=== PATIENT | male | born 1955 | race Caucasian/White ===

== ENCOUNTER 2023-04-14 08:00 | Emergency (ER) | payer OTHER ==
[~2023-04-14] VITALS: Ht 172.7 cm; Wt 103.4 kg
[~2023-04-14 08:00] MED LIST: ACYC800 PO; ALLO100 PO; AMLO10 PO; ATOR20 PO; FLUT220OIA INH; LOSA50 PO; RANI150 PO
[2023-04-14 09:20] VITALS: BP 151/84
== END 2023-04-14 10:53 | disposition home or self-care (01) ==
LOC: ER 08:00
DX: H43.392 Other vitreous opacities, left eye (principal); H53.8 Other visual disturbances; I10 Essential (primary) hypertension; Z79.899 Other long term (current) drug therapy
CPT/HCPCS: 99283-25